=== PATIENT | female | born 1970 | race Caucasian/White ===

== ENCOUNTER 2016-10-31 16:19 | Emergency (ER) | payer BC ==
[2016-10-31 16:28] VITALS: BP 139/83; PULSE 76; RESP 18; TEMP 98.6; O2SAT 98
--- NOTE | 2016-10-31 16:52 | UCPHY ---
H & P Time Seen by Provider: 10/31/16 16:34 Patient Type: New Smoking Status: Never smoked Constitutional: Initial Vital Signs Temperature (C) 37.0 C 10/31/16 16:26 Heart Rate 76 10/31/16 16:26 Respiratory Rate 18 10/31/16 16:26 Blood Pressure 139/83 H 10/31/16 16:26 O2 Sat (%) 98 10/31/16 16:26 O2 Delivery Mode Room Air Allergies/Adverse Reactions: No Known Allergies Allergy (Unverified 10/31/16 16:25) Home Medications: Medication Instructions Recorded Azithromycin [Zithromax] 250 mg PO DAILY #6 tab 10/31/16 Fluticasone Nasal [Flonase Nasal 2 sprays NASAL DAILY #1 mdi 10/31/16 [place] (RX)] Departure - Departure Disposition: Home, Routine, Self-Care Clinical Impression: Acute sinusitis Qualifiers: Sinusitis location: maxillary Recurrence: non-recurrent Qualified Code(s): J01.00 - Acute maxillary sinusitis, unspecified Condition: Good Instructions: Sinusitis (ED) Additional Instructions: Diagnosis: Acute sinusitis Plan: Humidifier Guaifenesin Flonase steroid nasal spray Zithromax antibiotic Ibuprofen or Aleve anti-inflammatory Your symptoms should gradually improve over the next 3 to a 10 days. Return for any significant worsening despite treatment plan Referrals: NONE *PRIMARY CARE P,. [Primary Care Provider] - As per Instructions Prescriptions: Azithromycin [Zithromax] 250 mg PO DAILY #6 tab Fluticasone Nasal [Flonase Nasal [place] (RX)] 2 sprays NASAL DAILY #1 mdi - PQRS PQRS Measurement: NA
== END 2016-10-31 17:05 | disposition home or self-care (01) ==
LOC: CED 16:19
DX: J01.00 Acute maxillary sinusitis, unspecified (principal)
CPT/HCPCS: G0463-PO